=== PATIENT | female | born 1985 | race Caucasian/White ===

== ENCOUNTER 2018-03-03 08:23 | Inpatient (IN) | payer OTHER ==
[~2018-03-03] VITALS: Ht 162.6 cm; Wt 93.9 kg
[2018-03-03 09:48] VITALS: BP 130/83
[2018-03-03 10:31] LABS: ABSOLUTE BASOPHIL COUNT 0 /CUMM (0.0-0.2); ABSOLUTE EOSINOPHIL COUNT 0.1 /CUMM (0.0-0.7); ABSOLUTE GRANULOCYTE CT 9.1 /CUMM (1.4-6.5); ABSOLUTE LYMPH COUNT 2.1 /CUMM (1.2-3.4); ABSOLUTE MONOCYTE COUNT 0.6 /CUMM (0.10-0.60); BASOPHIL % 0.2 % (0.0-2.0); EOSINOPHIL % 0.9 % (0-5); GRANULOCYTE % 75.9 % (42.2-75.2); HEMATOCRIT 39.6 % (37-47); MEAN CORPUSCULAR HGB 29.8 PG (27.0-31.0); MEAN CORPUSCULAR HGB CONC 35.4 G/DL (33.0-37.0); MEAN CORPUSCULAR VOLUME 84.4 FL (81.0-99.0); MEAN PLATELET VOLUME 8.9 FL (7.4-10.4); PLATELET COUNT 220 /CUMM (130-400); RBC DISTRIBUTION WIDTH 14.7 % (11.5-14.5); RED BLOOD CELL CT 4.69 /CUMM (4.20-5.40); WHITE BLOOD CELL COUNT 11.9 /CUMM (4.8-10.8)
--- NOTE | 2018-03-03 10:31 | History & Physical ---
General Information and HPI MD Statement: I have seen and personally examined MARKO ANTOINE and documented this H&P. The patient is a 32 year old female at 40 weeks and 1 days gestation who presented with a chief complaint of rom clear fluid about 5 AM. Source of Information: patient, old records Exam Limitations: no limitations History of Present Illness: Pt well known to our OB practice c/o SROM 5am clear fluid. H/O anxiety/Depression on Zoloft 75mg. 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 EENTM: Denies: blurred vision, double vision, visual changes. Cardiovascular: Denies: edema. Respiratory: Denies: short of breath. GI: Denies: diarrhea, nausea, vomiting. Neurological/Psychological: Denies: anxiety, depressed. Exam & Diagnostic Data Last 24 Hrs of Vital Signs/I&O vss Vital Signs Date Time Temp Pulse Resp B/P B/P Pulse O2 O2 Flow FiO2 Mean Ox Delivery Rate 03/03 0948 130/83 Intake & Output 03/03 1600 03/03 0800 03/03 0000 Intake Total Output Total Balance Patient 207 lb Weight Obstetric Exam Wgt Gained During : 30 Lbs Pelvimetry: tested to 7 lbs Dilation (cm): 1 Effacement (%): 50 Station: -2 Membranes: SROM Fluid: clear Fundal Height (cm): 40 Multiple Gestation? No Contractions: Q3-4 min #1 - FHR Baseline: 144 Category: 1 Estimated Weight: 3700g Presentation: vtx Patient for Induction? No Physical Exam General Appearance Alert, Oriented X3, Cooperative, No Acute Distress Skin No Rashes HEENT Atraumatic Neck Supple Cardiovascular Regular Rate Lungs Clear to Auscultation Abdomen Soft Extremities No Edema Labs Blood Type & Rh: B pos Antibody Screen: neg Hct/Hgb & Platelets #1: 40/13.5/299 Hct/Hgb & Platelets #2: 38.9/12.2/257 Rubella: immune VDRL #1: nr VDRL #2: nr HbsAg: neg HIV #1: nr HIV #2 nr 1 Hr P Group B Strep: neg Initial Ultrasound: 07/22/2017 8w 1d Anatomy Ultrasound: 10/13/2017 normal Ultrasound for EFW: 12/20/17 52%tile at 29 weeks Genetic Testing: Declined Last 24 Hrs of Labs/Vitaly: Laboratory Tests 03/03/18 0957: CBC w Diff Pending, WBC Pending, RBC Pending, Hgb Pending, Hct Pending, MCV Pending, MCH Pending, MCHC Pending, RDW Pending, Plt Count Pending, MPV Pending 03/03/18 0855: Membrane Rupture POSITIVE Assessment/Plan Assessment/Plan: SROM at term pt has h/o srom at term last waited 24 hours befor pitocin augmentation pt declining pitocin augmentation at present tome. GBS negative H/O anxiety on 75mg Zoloft Obesity good growth As Ranked By This Provider Problem List: 1. Core Measures Venous Thromboembolism VTE Risk Factors / No Mechanical VTE Prophylaxis d/t Early Ambulation No VTE Pharm Prophylaxis d/t LowRisk-No Interven Req'd Attending MD Review Statement Attending Statement Attending MD Statement: examined this patient, discussed with family, discussed w/nursing Attending Assessment/Plan: SROM at term pt has h/o srom at term last waited 24 hours befor pitocin augmentation pt declining pitocin augmentation at present tome. GBS negative H/O anxiety on 75mg Zoloft Obesity good growth PLAN expectant management
--- NOTE | 2018-03-03 17:22 | Labor & Delivery Summary ---
Delivery Summary Vaginal Delivery: Vaginal: vertex Episiotomy/Lacerations: Episiotomy/Lacerations: ! degree midline Type: first degree midline Repair: 3-0 polysorb Anesthesia: epidural Placenta: Placenta: spontanteous, normal, 3 vessel, nuchal cord (x_), nuchal arm Anesthesia: block Apgars - 1 Min: 9 Apgars - 5 Min: 9 Additional Comments: pushed well with epidural loose nuchal cord and nuchal arm
[2018-03-04 08:33] LABS: ABSOLUTE BASOPHIL COUNT 0.1 /CUMM (0.0-0.2); ABSOLUTE EOSINOPHIL COUNT 0.1 /CUMM (0.0-0.7); ABSOLUTE GRANULOCYTE CT 8.1 /CUMM (1.4-6.5); ABSOLUTE LYMPH COUNT 2.5 /CUMM (1.2-3.4); ABSOLUTE MONOCYTE COUNT 0.5 /CUMM (0.10-0.60); BASOPHIL % 0.5 % (0.0-2.0); GRANULOCYTE % 71.9 % (42.2-75.2); HEMATOCRIT 36.3 % (37-47); MEAN CORPUSCULAR HGB 30.4 PG (27.0-31.0); MEAN CORPUSCULAR HGB CONC 35.1 G/DL (33.0-37.0); MEAN CORPUSCULAR VOLUME 86.5 FL (81.0-99.0); MEAN PLATELET VOLUME 8.6 FL (7.4-10.4); PLATELET COUNT 205 /CUMM (130-400); RBC DISTRIBUTION WIDTH 14.9 % (11.5-14.5); WHITE BLOOD CELL COUNT 11.3 /CUMM (4.8-10.8)
--- NOTE | 2018-03-04 17:35 | PN- Post Delivery/GYN ---
Subjective Subjective: Doing well, no complaints, tolerate diet, void without difficulties, ambulating well. Review of Systems Constitutional: Reports: no symptoms. EENTM: Reports: no symptoms. Cardiovascular: Reports: no symptoms. Respiratory: Reports: no symptoms. Gastrointestinal: Reports: no symptoms. Genitourinary: Reports: see HPI. Musculoskeletal: Reports: no symptoms. All Other Systems: Reviewed and Negative Objective Last 24 Hrs of Vital Signs/I&O VSS Physical Exam: VSS General: NAD Abdomen: soft, nontender, uterus firm, fundus below umbilicus, lochia mild. Ext: DCT (-) Current Medications: Current Medications Sig/Ailyn Start time Last Medication Dose Route Stop Time Status Admin Acetaminophen 650 MG Q4P PRN 03/03 1730 AC PO Hydroxyzine HCl 50 MG AT BEDTIME NEED.. 03/03 1730 AC PO Ibuprofen 800 MG .STK-MED ONE 03/04 0318 DC PO 03/04 0319 Ibuprofen 800 MG Q6P PRN 03/03 1730 AC 03/04 PO 1551 Lactated Ringer's 1,000 ML Q8H 03/03 1000 DC 03/03 IV 1425 Magnesium Hydroxide 30 ML DAILY PRN 03/03 1730 AC PO Oxytocin 20 UNITS Q5H 03/03 1730 DC 03/03 Lactated Ringer's 1,000 ML IV 03/03 2229 1710 Sertraline HCl 75 MG 5PM 03/04 1700 DC PO Sertraline HCl 75 MG DAILY@1030 03/04 1036 AC 03/04 PO 1058 Last 24 Hrs of Labs/Vitaly: Laboratory Tests 03/04/18 0807: CBC w Diff NO MAN DIFF REQ, RBC 4.20, MCV 86.5, MCH 30.4, MCHC 35.1, RDW 14.9 H , MPV 8.6, Gran % 71.9, Lymphocytes % 21.9, Monocytes % 4.7, Eosinophils % 1.0, Basophils % 0.5, Absolute Granulocytes 8.1 H, Absolute Lymphocytes 2.5, Absolute Monocytes 0.5, Absolute Eosinophils 0.1, Absolute Basophils 0.1 Assessment/Plan Assessment/Plan 32yo, s/p , PPD#1 1. Encourage ambulation and breast-feeding. 2. Routine care, pain management as needed.
[2018-03-05] MEDS ORDERED: IBUPROFEN800 M1 PO (08:15)
--- NOTE | 2018-03-05 08:18 | PN- OBGYN ---
Surgical Brief Attending Note Brief Attending Note: PPD#2 pt is resting in bed, no complaints. PE: VSS CV RRR Lungs TA B/L Abdomen: soft, nontender, uterus firm, fundus below umbilicus, lochia mild Ext: DCT (-) A/P: 32 yo, s/p , PPD#2 1. encourage ambulation and 2. RT PP care 3. will d/c home, f/u in office in 2wks and 6 wks, discharge instructions given.
== END 2018-03-05 11:20 | DRG 775 ==
LOC: CBCO 08:23 → GNO 09:10
PROVIDERS: Obstetrics & Gynecology
PROC: 10E0XZZ Delivery of Products of Conception, External Approach (ICD-10-PCS; principal; 2018-03-03)
PROC: 0HQ9XZZ Repair Perineum Skin, External Approach (ICD-10-PCS; principal; 2018-03-03)
DX: O70.0 First degree perineal laceration during delivery (principal); E66.9 Obesity, unspecified; O99.214 Obesity complicating childbirth; F41.9 Anxiety disorder, unspecified; O99.344 Other mental disorders complicating childbirth; F32.9 Major depressive disorder, single episode, unspecified; O69.81X0 Labor and delivery complicated by cord around neck, without compression, not applicable or unspecified; O69.89X0 Labor and delivery complicated by other cord complications, not applicable or unspecified; Z3A.40 40 weeks gestation of pregnancy; Z37.0 Single live birth
CPT/HCPCS: GNOS; 36415; 81001; 84112; J7120